=== PATIENT | male | born 1985 | race American Indian/Alaskan Native ===

== ENCOUNTER 2017-01-28 19:24 | Emergency (ER) | payer MEDICAID ==
[2017-01-28 19:25] VITALS: BMI 20.9
[2017-01-28 19:37] VITALS: BP 118/84; PULSE 65; RESP 18; TEMP 97.9; O2SAT 100
--- NOTE | 2017-01-28 19:51 | C.PDOC ---
History Of Present Illness 31 year old male who presents to the ER requesting a circumcision. Patient reports he has not seen a doctor for his request; denies pain or physical complaints. Time Seen by Provider: 01/28/17 19:45 Chief Complaint (Nursing): Medical Clearance History Per: Patient History/Exam Limitations: no limitations Onset/Duration Of Symptoms: Days Current Symptoms Are (Timing): Still Present Recent travel outside of the [place]: No Past Medical History Reviewed: Historical Data, Nursing Documentation, Vital Signs Vital Signs: Last Vital Signs Temp 97.9 F 01/28/17 19:29 Pulse 65 01/28/17 19:29 Resp 18 01/28/17 19:29 BP 118/84 01/28/17 19:29 Pulse Ox 100 01/28/17 20:59 - Medical History Other PMH: Alcohol abuse Family History: States: Unknown Family Hx - Social History Hx Alcohol Use: Yes Hx Substance Use: Yes (PCP) - Immunization History Hx Tetanus Toxoid Vaccination: No Hx Influenza Vaccination: No Hx Pneumococcal Vaccination: No Review Of Systems Constitutional: Negative for: Fever Respiratory: Negative for: Shortness of Breath Gastrointestinal: Negative for: Abdominal Pain Genitourinary: Negative for: Dysuria, Hematuria, Penile Discharge, Scrotal Pain , Rash, Penile Pain Skin: Negative for: Rash Physical Exam - Physical Exam Appears: Non-toxic, No Acute Distress Skin: Normal Color, Warm, Dry Head: Atraumatic, Normacephalic Eye(s): bilateral: Normal Inspection Oral Mucosa: Moist Neck: Normal ROM Chest: Symmetrical, No Tenderness Cardiovascular: Rhythm Regular, No Murmur Respiratory: Normal Breath Sounds, No Rales, No Rhonchi, No Wheezing Gastrointestinal/Abdominal: Soft, No Tenderness Extremity: Normal ROM, 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 Disposition Counseled Patient/Family Regarding: Need For Followup - Disposition Referrals: Abram Vega MD [Staff Provider] - Disposition: HOME/ ROUTINE Disposition Time: 19:50 Condition: STABLE Additional Instructions: YOU NEED TO CONTACT UROLOGIST TO SCHEDULE YOUR SURGERY Forms: [facility] (Belarusian), General Discharge Instructions - POA Present On Arrival: None - Clinical Impression Clinical Impression: Medical assessment - Scribe Statement The provider has reviewed the documentation as recorded by the Scribe Clay Sapp All medical record entries made by the Scribe were at my direction and personally dictated by me. I have reviewed the chart and agree that the record accurately reflects my personal performance of the history, physical exam, medical decision making, and the department course for this patient. I have also personally directed, reviewed, and agree with the discharge instructions and disposition.
== END 2017-01-28 20:00 | disposition home or self-care (01) ==
LOC: C.ER 19:24
DX: Z00.00 Encounter for general adult medical examination without abnormal findings (principal)

== ENCOUNTER 2017-07-26 00:01 | Emergency (ER) | payer MEDICAID ==
[2017-07-26 00:01] VITALS: BMI 20.9
--- NOTE | 2017-07-26 01:42 | C.PDOC ---
History Of Present Illness pt states the he feels that his heart is weak. No chest pain, no palpitations, no shortness of breath. Wants and EKG. Speaking in complete sentences. Denies any drug or alcohol use today Time Seen by Provider: 07/26/17 01:41 Chief Complaint (Nursing): Medical Clearance Past Medical History Reviewed: Historical Data, Nursing Documentation, Vital Signs Vital Signs: Last Vital Signs Temp 97.7 F 07/26/17 03:45 Pulse 54 L 07/26/17 03:45 Resp 16 07/26/17 03:45 BP 106/66 07/26/17 03:45 Pulse Ox 100 07/26/17 03:45 - Medical History PMH: Denies: Chronic Kidney Disease Family History: States: No Known Family Hx - Social History Hx Alcohol Use: Yes Hx Substance Use: No (PCP) - Immunization History Hx Tetanus Toxoid Vaccination: No Hx Influenza Vaccination: No Hx Pneumococcal Vaccination: No Review Of Systems Constitutional: Negative for: Fever, Chills ENT: Negative for: Throat Pain Cardiovascular: Negative for: Chest Pain Respiratory: Negative for: Shortness of Breath Gastrointestinal: Negative for: Abdominal Pain Musculoskeletal: Negative for: Back Pain Skin: Negative for: Rash Neurological: Negative for: Weakness Psych: Negative for: Anxiety Physical Exam - Physical Exam Appears: Non-toxic, No Acute Distress Skin: Warm, Dry Head: Normacephalic Oral Mucosa: Moist Chest: Symmetrical Cardiovascular: Rhythm Regular Respiratory: No Rales, No Rhonchi, No Wheezing Gastrointestinal/Abdominal: Soft, No Tenderness Back: No CVA Tenderness Extremity: Other (b/l congenital arms deformities) Extremity: Bilateral: Normal ROM Neurological/Psych: Oriented x3 Gait: Steady ED Course And Treatment - Laboratory Results Result Diagrams: 07/26/17 04:17 07/26/17 04:17 ECG: Interpreted By Me, Viewed By Me ECG Rhythm: Sinus Rhythm (63), 1st Degree HB, Nonspecific Changes (unchanged from 01/26/17) O2 Sat by Pulse Oximetry: 97 Pulse Ox Interpretation: Normal Reevaluation Time: 05:52 Reassessment Condition: Improved Disposition Counseled Patient/Family Regarding: Studies Performed, Diagnosis, Need For Followup - Disposition Referrals: [facility] at [facility] [Outside] Disposition: HOME/ ROUTINE Disposition Time: 01:42 Condition: FAIR Forms: [facility] (Czech), General Discharge Instructions - Clinical Impression Clinical Impression: Medical assessment
[2017-07-26 04:23] LABS: WHITE BLOOD COUNT 5.5 K/uL (4.8-10.8)
[2017-07-26 04:51] LABS: INR 1.2; PROTHROMBIN TIME 13.4 SECONDS (9.7-12.2)
[2017-07-26 04:54] LABS: ALB/GLOB RATIO 1.5 (1.0-2.1); ALBUMIN 3.8 g/dL (3.5-5.0); ALT/SGPT 27 U/L (21-72); AST/SGOT 21 U/L (17-59); BASO % 0.6 % (0.0-2.0); BLOOD UREA NITROGEN 14 mg/dL (9-20); CALCIUM 8.7 mg/dl (8.6-10.4); EOS # 0.1 K/uL (0.0-0.7); EOS % 1.9 % (0.0-4.0); GFR AFRICAN-AMERICAN > 60; GFR NON-AFRICAN AMERICAN > 60; HEMOGLOBIN 12.9 g/dL (12.0-18.0); LYMPH # 3.3 K/uL (1.0-4.3); LYMPH % 59.8 % (20.0-40.0); MEAN CELL VOLUME 89.9 fL (80.0-94.0); MEAN CORPUSCULAR HEMOGLOBIN 30.2 pg (27.0-31.0); MEAN CORPUSCULAR HGB CONC 33.6 g/dL (33.0-37.0); MEAN PLATELET VOLUME 8.1 fL (7.2-11.7); MONO # 0.3 K/uL (0.0-0.8); MONO % 5.4 % (0.0-10.0); NEUT # 1.8 K/uL (1.8-7.0); NEUT % 32.3 % (50.0-75.0); NRBC % 0.3 % (0.0-2.0); RBC 4.27 Mil/uL (4.40-5.90); RED CELL DISTRIBUTION WIDTH 13.3 % (11.5-14.5)
[2017-07-26 06:02] VITALS: BP 108/61; PULSE 52; RESP 22; TEMP 97.9; O2SAT 98
[2017-07-26 06:15] LABS: SQUAMOUS EPITHIAL < 1 /hpf (0-5); URINE BILIRUBIN NEGATIVE (NEGATIVE); URINE BLOOD NEGATIVE (NEGATIVE); URINE CLARITY Clear (Clear); URINE COLOR Yellow (YELLOW); URINE GLUCOSE (UA) NORMAL (Normal); URINE HYALINE CAST 0-2 /lpf (0-2); URINE LEUKOCYTE ESTERASE NEG Leu/uL (Negative); URINE NITRATE NEGATIVE (NEGATIVE); URINE PROTEIN NEGATIVE (NEGATIVE)
[2017-07-26 06:39] LABS: BARBITURATES, UR NEGATIVE (NEGATIVE); BENZODIAZEPINES, UR NEGATIVE (NEGATIVE); OPIATES, UR NEGATIVE (NEGATIVE)
[2017-07-26 06:54] LABS: PHENCYCLIDINE, UR POSITIVE (NEGATIVE)
--- NOTE | 2017-07-26 08:24 | RAD ---
PROCEDURE: CHEST RADIOGRAPH, 1 VIEW HISTORY: chest pain COMPARISON: None available. FINDINGS: LUNGS: Contracted right hand obscures right lung base. No suspect infiltrates PLEURA: No pneumothorax or pleural fluid seen. CARDIOVASCULAR: Cardiomegaly. Midline sternotomy. OSSEOUS STRUCTURES: Multiple osseous deformities -bilateral shoulders shoulders and right upper extremity. No fracture appreciated VISUALIZED UPPER ABDOMEN: Normal. OTHER FINDINGS: None. IMPRESSION: No suspect infiltrate. No pulmonary edema or pneumothorax or pleural effusion. Cardiomegaly Osseous anomalous development.
--- NOTE | 2017-07-26 20:56 | CARD ---
APPROVED REPORT EKG Measurement Heart [id number] <Conclusion> Sinus rhythm with 1st degree AV block Rightward axis Borderline ECG
== END 2017-07-26 06:32 | disposition home or self-care (01) ==
LOC: C.ER 00:01
DX: Z00.00 Encounter for general adult medical examination without abnormal findings (principal)

== ENCOUNTER 2017-11-03 11:24 | Emergency (ER) | payer MEDICAID ==
[2017-11-03 11:24] VITALS: BMI 20.9
[2017-11-03 12:00] VITALS: TEMP 98.1
[2017-11-03 12:54] VITALS: RESP 16
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
[2017-11-03] MEDS ORDERED: cefTRIAXone IV 1 gm in Dextros 50 ML IV ONE (14:40)
[2017-11-03] MEDS ORDERED: LIDOCAINE HYDROCHLORIDE 1% IM ONE (15:31)
[2017-11-03] MEDS ORDERED: CEFTRIAXONE 1000 MG IM ONE (15:31)
[2017-11-03 15:50] VITALS: BP 150/82; PULSE 69
[2017-11-03 15:51] VITALS: O2SAT 99
[2017-11-03] MEDS ORDERED: CEFTRIAXONE IM ONE ×2 (16:00)
[2017-11-03] MEDS ORDERED: LIDOCAINE HYDROCHLORIDE IM ONE ×2 (16:00)
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
== END 2017-11-03 16:08 | disposition home or self-care (01) ==
LOC: C.ER 11:24
DX: S02.31XA Fracture of orbital floor, right side, initial encounter for closed fracture (principal); Y09 Assault by unspecified means; F19.10 Other psychoactive substance abuse, uncomplicated
CPT/HCPCS: 70450; 70480; 96372; 99285; J0696